=== PATIENT | male | born 1980 | race Caucasian/White ===

== ENCOUNTER 2018-03-21 17:07 | Emergency (ER) | payer SELFPAY ==
[2018-03-21] MEDS ORDERED: Tramadol ER(NF) 100 MG TAB.ER PO ONE (17:41)
[2018-03-21] MEDS ORDERED: traMADol TAB* 50 MG ONE (17:56)
[2018-03-21 18:40] VITALS: BP 138/78
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
== END 2018-03-21 18:38 | disposition home or self-care (01) ==
LOC: ED 17:07
DX: T14.90XA Injury, unspecified, initial encounter (principal); Z04.1 Encounter for examination and observation following transport accident; V49.9XXA Car occupant (driver) (passenger) injured in unspecified traffic accident, initial encounter; Y92.9 Unspecified place or not applicable
CPT/HCPCS: 99282; A9270-GY

== ENCOUNTER 2019-04-25 12:39 | Emergency (ER) | payer BC, OTHER ==
[2019-04-25] MEDS ORDERED: Al Hydrox/Mg Hydrox/Simet LIQ* 30 ML UDC PO ONE (12:42)
[2019-04-25] MEDS ORDERED: Lidocaine 2% VISCOUS* 15 ML UDC PO ONE (12:42)
[2019-04-25] MEDS ORDERED: Famotidine TAB* 20 MG PO ONE (12:42)
[2019-04-25] MEDS ORDERED: Aspirin 81 mg CHEW TAB* 81 MG TAB.CHEW PO ONE (12:52)
--- NOTE | 2019-04-25 12:52 | UC ---
Cardiac HPI - HPI Summary HPI Summary: sudden onset of left anterior chest pain associated with SOB, tachycardia. PAtient does drink energy drinks and is a smoker---Uncle had first [place] in his 40' s. 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---patient tells us he friend noted him to get pale at unset of symptoms--- no epigastric pain no change in pain with inspiration or palpation---no pain in legs, immobility, nausea or vomiting - History of Current Complaint Chief Complaint: UCChestPain Stated Complaint: CHEST PAIN Time Seen by Provider: 04/25/19 12:50 Hx Obtained From: Patient Onset/Duration: Sudden Onset Timing: Constant Initial Severity: Moderate Current Severity: Moderate Chest Pain Location: Left Anterior Character: Fast Aggravating Factor(s): Exertion Alleviating Factor(s): Nothing Associated Signs & Symptoms: Positive: Chest Pain - Risk Factors Pulmonary Embolism Risk Factors: Smoking - Allergy/Home Medications Allergies/Adverse Reactions: Allergies Allergy/AdvReac Type Severity Reaction Status Date / Time amoxicillin AdvReac Severe Diarrhea Verified 04/25/19 13:00 PMH/Surg Hx/FS Hx/Imm Hx Previously Healthy: No Psychological History: Anxiety - Surgical History Surgical History: Yes Surgery Procedure, Year, and Place: [id number] - Family History Known Family History: Positive: Other - gal bladder dz - Social History Occupation: Employed Full-time Lives: With Family Alcohol Use: None Substance Use Type: Marijuana Substance Use Comment - Amount & Last Used: OR CBD OIL WHEN STOMACH IS UPSET Smoking Status (MU): Former Smoker Type: Cigars, Smokeless Tobacco Amount Used/How Often: 2 cigars per day- USING VAPOR- AND WEANING FROM When Did the Patient Quit Smoking/Using Tobacco: 04/2015 Review of Systems All Other Systems Reviewed And Are Negative: Yes Constitutional: Positive: Negative Skin: Positive: Negative Eyes: Positive: Negative ENT: Positive: Negative Respiratory: Positive: Negative Cardiovascular: Positive: Palpitations, Chest Pain Gastrointestinal: Positive: Negative Genitourinary: Positive: Negative Motor: Positive: Negative Neurovascular: Positive: Negative Musculoskeletal: Positive: Negative Neurological: Positive: Negative Psychological: Positive: Negative Is Patient Immunocompromised?: No Physical Exam Triage Information Reviewed: Yes Appearance: Ill-Appearing, Pain Distress, Thin Vital Signs Reviewed: Yes Eye Exam: Normal Eyes: Positive: Conjunctiva Clear ENT Exam: Normal ENT: Positive: Normal ENT inspection, Hearing grossly normal. Negative: Trismus , Muffled voice, Hoarse voice Dental Exam: Normal Neck exam: Normal Neck: Positive: Supple, Nontender Respiratory Exam: Normal Respiratory: Positive: Chest non-tender, Lungs clear, Normal breath sounds, No respiratory distress, No accessory muscle use Cardiovascular Exam: Normal Cardiovascular: Positive: RRR, No Murmur, Pulses Normal, Brisk Capillary Refill Abdominal Exam: Normal Abdomen Description: Positive: Nontender, No Organomegaly, Soft. Negative: CVA Tenderness (R), CVA Tenderness (L), Distended, McBurney's Point Tenderness Bowel Sounds: Positive: Present Musculoskeletal Exam: Normal Musculoskeletal: Positive: Strength Intact, ROM Intact, No Edema Neurological Exam: Normal Neurological: Positive: Alert, Muscle Tone Normal Psychological Exam: Normal Skin Exam: Normal Diagnostics - EKG Cardiac Rate: NL Cardiac Rhythm: Sinus: Normal Ectopy: None ST Segment: Normal EKG Comparison: No Significant Change - Assessment/Plan Course Of Treatment: keep o2.94%, aspirin, saline lock ekg gi cocktail to [facility] for further evaluation by ems - Clinical Impression Provider Diagnosis: Chest pain, Gastritis Discharge - Sign-Out/Discharge Documenting (check all that apply): Patient Departure All imaging exams completed and their final reports reviewed: No Studies - Discharge Plan Condition: Good Disposition: TRANS HIGHER LVL OF CARE FAC Referrals: Malina Colon MD [Primary Care Provider] - - Billing Disposition and Condition Condition: GOOD Disposition: Trans Higher Lvl of Care Fac
[2019-04-25 13:00] VITALS: BP 162/90
== END 2019-04-25 13:20 | disposition short-term general hospital (02) ==
LOC: UCEAST 12:39
DX: R07.9 Chest pain, unspecified (principal); K29.70 Gastritis, unspecified, without bleeding; Z87.891 Personal history of nicotine dependence
CPT/HCPCS: 93005; 99214; A9270-GY; G0463

== ENCOUNTER 2019-04-25 13:41 | Emergency (ER) | payer SELFPAY ==
--- NOTE | 2019-04-25 14:06 | ED ---
HPI Chest Pain - HPI Summary HPI Summary: This patient is a 38 year old M presenting to [facility] from [facility] with a chief complaint of left anterior chest pain with numbness to the jaw since 11:30 this morning. Additionally reports left shoulder pain, that is chronic, and diaphoresis at rest. At work he was told by his co-workers he was pale. At worst Pain rated 6/10 that is currently improved to 2/10 after given GI cocktail at [facility]. Denies history of anxiety and panic attacks. Current smoker. Reports FMHx of [place] in a 48 y/o uncle. Denies significant PMHx. Patient additionally given 324 ASA at [facility]. - History of Current Complaint Chief Complaint: EDChestWallPain Time Seen by Provider: 04/25/19 13:54 Hx Obtained From: Patient Onset/Duration: Started Hours Ago Time of Onset: 11:30 Timing: Constant Initial Severity: Moderate Current Severity: Mild Pain Intensity: 2 Pain Scale Used: 0-10 Numeric Chest Pain Location: Left Anterior Chest Pain Radiates: Yes Chest Pain Radiates To:: Shoulder, Jaw Alleviating Factor(s): Medication Associated Signs and Symptoms: Positive: Chest Pain, Diaphoresis, Other: - pallor, jaw pain - Allergy/Home Medications Allergies/Adverse Reactions: Allergies Allergy/AdvReac Type Severity Reaction Status Date / Time amoxicillin AdvReac Severe Diarrhea Verified 04/25/19 13:51 PMH/Surg Hx/FS Hx/Imm Hx Endocrine/Hematology History: Denies: Hx Diabetes, Hx Thyroid Disease Cardiovascular History: Denies: Hx Hypertension Respiratory History: Denies: Hx Asthma, Hx Chronic Obstructive Pulmonary Disease (COPD) GI History: Reports: Other GI Disorders - "SENSITIVE STOMACH" Denies: Hx Ulcer Sensory History: Denies: Hx Contacts or Glasses, Hx Hearing Aid Opthamlomology History: Denies: Hx Contacts or Glasses - Surgical History Surgery Procedure, Year, and Place: [id number] Hx Anesthesia Reactions: No Infectious Disease History: No Infectious Disease History: Reports: Hx of Known/Suspected MRSA - in his teens Denies: Hx Hepatitis, Hx Human Immunodeficiency Virus (HIV), History Other Infectious Disease, Traveled Outside the [place] in Last 30 Days - Family History Known Family History: Positive: Other - gal bladder dz - Social History Alcohol Use: Rare Substance Use Type: Reports: Marijuana Substance Use Comment - Amount & Last Used: OR CBD OIL WHEN STOMACH IS UPSET Smoking Status (MU): Former Smoker Type: Cigars, Smokeless Tobacco Amount Used/How Often: 2 cigars per day- USING VAPOR- AND WEANING FROM Review of Systems Positive: Skin Diaphoresis Positive: Chest Pain Positive: Myalgia - shoulder Positive: Other - pallor Positive: Numbness - jaw All Other Systems Reviewed And Are Negative: Yes Physical Exam - Summary Physical Exam Summary: GENERAL: Patient is a well-developed and nourished M who is lying comfortable in the stretcher. Patient is not in any acute respiratory distress. HEAD AND FACE: Normocephalic EYES: PERRLA, EOMI x 2. EARS: Hearing grossly intact. MOUTH: Oropharynx within normal limits. NECK: Supple, trachea is midline, no adenopathy, no JVD, no carotid bruit. CHEST: Symmetric, no tenderness at palpation LUNGS: Clear to auscultation bilaterally. No wheezing or crackles. CVS: Regular rate and rhythm, S1 and S2 present, no murmurs or gallops appreciated. ABDOMEN: Soft, non-tender. Bowel sounds are normal. No abnormal abdominal pulsations. EXTREMITIES: Full ROM in all major joints, no edema, no cyanosis or clubbing. NEURO: Alert and oriented x 3. No acute neurological deficits. Speech is normal and follows commands. SKIN: Dry and warm Triage Information Reviewed: Yes Vital Signs On Initial Exam: Initial Vitals Temp Pulse Resp BP Pulse Ox 98.5 F 64 16 139/94 99 04/25/19 13:47 04/25/19 13:47 04/25/19 13:47 04/25/19 13:47 04/25/19 13:47 Vital Signs Reviewed: Yes Diagnostics - Vital Signs Vital Signs Temp Pulse Resp BP Pulse Ox 04/25/19 13:47 98.5 F 64 16 139/94 99 - Laboratory Result Diagrams: 04/25/19 14:13 04/25/19 14:13 Lab Statement: Any lab studies that have been ordered have been reviewed, and results considered in the medical decision making process. - Radiology CXR Radiology Interpretation Completed By: Radiologist Summary of Radiographic Findings: No radiographic evidence of acute cardiopulmonary disease. ED Physician has reviewed this report. - EKG 1352 Cardiac Rate: NL - 65 BPM EKG Rhythm: Sinus Rhythm Summary of EKG Findings: incomplete RBBB Chest Pain Course/Dx - Course Course Of Treatment: 38 year old M presenting to [facility] from [facility] with a chief complaint of left anterior chest pain with numbness to the jaw since 11:30 this morning. Additionally reports left shoulder pain, that is chronic, and diaphoresis at rest. Reports FMHx of [place] in a 48 y/o uncle. Denies significant PMHx. Patient additionally given 324 ASA at [facility]. Bloodwork and UA obtained, with two negative troponin results. CXR reveals, "No radiographic evidence of acute cardiopulmonary disease." per radiologist. EKG reveals no ischemic changes. Results discussed with patient. Explained to patient even though his symptoms were improved with the GI cocktail he needs to follow up with a dolphin researcher for further management and evaluation. Patient is agreeable with this plan. - Diagnoses Provider Diagnoses: Chest pain Discharge - Sign-Out/Discharge Documenting (check all that apply): Patient Departure - discharge Patient Received Moderate/Deep Sedation with Procedure: No - Discharge Plan Condition: Stable Disposition: HOME Prescriptions: Pantoprazole TAB * [Protonix TAB*] 40 mg PO DAILY #30 tab Patient Education Materials: Chest Pain (ED), Gastroesophageal Reflux Disease ( ED) Referrals: Malina Colon MD [Primary Care Provider] - 2 Days Gary Jones DO [Medical Doctor] - 2 Days Additional Instructions: RETURN TO THE EMERGENCY DEPARTMENT FOR CHANGING OR WORSENING SYMPTOMS. Otherwise follow up with your PCP and a dolphin researcher. - Billing Disposition and Condition Condition: STABLE Disposition: Home - Attestation Statements Document Initiated by Scribe: Yes Documenting Scribe: Bushra Rivas Provider For Whom Duane is Documenting (Include Credential): Candie Barker MD Scribe Attestation: Bushra Cote, scribed for Candie Barker MD on 04/25/19 at 2108. Scribe Documentation Reviewed: Yes Provider Attestation: The documentation as recorded by the Bushra bazan accurately reflects the service I personally performed and the decisions made by me, Candie Barker MD Status of Scribe Document: Viewed
[2019-04-25 14:22] LABS: ABS Basophils 0.1 10^3/ul (0-0.2); ABS Eosinophils 0.2 10^3/ul (0-0.6); ABS Lymphocytes 1.9 10^3/ul (1.0-4.8); ABS Monocytes 0.6 10^3/ul (0-0.8); ABS Neutrophils 3.5 10^3/ul (1.5-7.7); Eosinophil % 3.3 %; Hematocrit 40 % (42-52); Mean Corpuscular HGB Conc 35 g/dL (31-36); Mean Corpuscular Hemoglobin 31 pg (27-31); Mean Corpuscular Volume 89 fL (80-94); Mean Platelet Volume 8.2 fL (7.4-10.4); Nucleated Red Blood Cells % 0.1; Platelet Count 166 10^3/uL (150-450); Red Blood Count 4.49 10^6 /uL (4.18-5.48); Red Cell Distribution Width 14 % (10.5-15); White Blood Count 6.2 10^3/uL (3.5-10.8)
[2019-04-25 14:31] LABS: Activated Partial Thrombo Time 40.8 seconds (26.0-38.0); INR 0.99 (0.82-1.09)
[2019-04-25 14:39] LABS: ALT 11 U/L (7-52); AST 17 U/L (13-39); Albumin 4.6 g/dL (3.2-5.2); Albumin/Globulin Ratio 1.8 (1-3); Alkaline Phosphatase 41 U/L (34-104); Anion Gap 5 mmol/L (2-11); BUN/Creatinine Ratio 8.9 (8-20); Blood Urea Nitrogen 8 mg/dL (6-24); CO2 Carbon Dioxide 27 mmol/L (22-32); CRP High Sensitivity < 0.20 mg/L (<2.00); Calcium 9.6 mg/dL (8.6-10.3); Chloride 105 mmol/L (101-111); EGFR African American 114.9 (>60); Globulin 2.5 g/dL (2-4); Glucose 90 mg/dL (70-100); Magnesium 2.1 mg/dL (1.9-2.7); Potassium 3.9 mmol/L (3.5-5.0); Sodium 137 mmol/L (135-145); Total Protein 7.1 g/dL (6.4-8.9)
[2019-04-25 15:31] LABS: Urine Appearance Clear; Urine Bilirubin Negative (Negative); Urine Blood Negative (Negative); Urine Color Straw; Urine Glucose Negative (Negative); Urine Ketones Negative (Negative); Urine Nitrite Negative (Negative); Urine Protein Negative (Negative); Urine Specific Gravity 1.004 (1.010-1.030); Urine Urobilinogen Negative (Negative)
[2019-04-25 17:48] VITALS: BP 132/80
== END 2019-04-25 17:46 | disposition home or self-care (01) ==
LOC: ED 13:41
DX: R07.9 Chest pain, unspecified (principal); F17.290 Nicotine dependence, other tobacco product, uncomplicated; Z88.3 Allergy status to other anti-infective agents
CPT/HCPCS: 36415; 71046; 80053; 81003; 83605; 83735; 84484; 85025; 85379; 85610; 85730; 86141; 93005; 99283

== ENCOUNTER 2019-09-07 16:30 | Emergency (ER) | payer SELFPAY ==
--- NOTE | 2019-09-07 17:16 | UC ---
Lower Extremity/Ankle HPI - HPI Summary HPI Summary: 39 y/o male presents to the urgent care c/p of left foot pain and mild swelling s/p injury w/ a fallen hammer last night. Pt reports he was trying to get some linens from a top drawer when a hammer fell off on top os his left foot. He was wearing shoes. He applied ice and has taken Ibuprofen PO 400mg to alleviate symptoms. Last dose was this morning. Pain is 5/10 and worse w/ walking and associated w/ mild tingling sensation over the lateral side of foot. Hx of left foot sprain in the past. Pt denies fever, calf pain, SOB, chest pain, abdominal pain, ankle pain, N/V/D. - History of Current Complaint Stated Complaint: FOOT INJURY Time Seen by Provider: 09/07/19 17:15 Hx Obtained From: Patient Onset/Duration: Gradual Onset, Lasting Days - 1 day, Still Present, Worse Since - th morning Severity Initially: Moderate Severity Currently: Moderate Pain Intensity: 5 Pain Scale Used: 0-10 Numeric Aggravating Factor(s): Standing, Ambulation Alleviating Factor(s): Rest, Elevation, OTC Meds - Ibuprofen PO 400mg this morning Able to Bear Weight: Yes - Risk Factors Gout Risk Factors: Negative DVT Risk Factors: Negative Septic Arthritis Risk Factor: Negative - Allergies/Home Medications Allergies/Adverse Reactions: Allergies Allergy/AdvReac Type Severity Reaction Status Date / Time amoxicillin AdvReac Severe Diarrhea Verified 09/07/19 17:19 PMH/Surg Hx/FS Hx/Imm Hx Previously Healthy: Yes - Pt denies PMHX - Surgical History Surgical History: Yes Surgery Procedure, Year, and Place: L [id number] - Family History Known Family History: Positive: Diabetes, Other - gall bladder dz - Social History Occupation: Employed Full-time Lives: With Family Alcohol Use: Rare Substance Use Type: Marijuana Substance Use Comment - Amount & Last Used: OR CBD OIL WHEN STOMACH IS UPSET Smoking Status (MU): Former Smoker Type: Cigars, Smokeless Tobacco Amount Used/How Often: 2 cigars per day- USING VAPOR- AND WEANING FROM When Did the Patient Quit Smoking/Using Tobacco: 04/2015 Household Exposure Type: Cigarettes Review of Systems All Other Systems Reviewed And Are Negative: Yes Constitutional: Positive: Negative Skin: Positive: Negative Eyes: Positive: Negative ENT: Positive: Negative Respiratory: Positive: Negative Cardiovascular: Positive: Negative Gastrointestinal: Positive: Negative Genitourinary: Positive: Negative Motor: Positive: Negative Neurovascular: Positive: Negative Musculoskeletal: Positive: Decreased ROM - left foot, Other: - left foot pain s/ p inury w/ a falling hammer Neurological: Positive: Negative Psychological: Positive: Negative Is Patient Immunocompromised?: No Physical Exam - Summary Physical Exam Summary: Vital Signs Reviewed: Yes General : well developed, well nourished male w/o any apparent distress Eyes: Positive: Conjunctiva Clear - PERRLA, EOMI ENT: Positive: Normal ENT inspection, Hearing grossly normal, Pharynx normal, TMs normal Neck: Positive: Supple, Nontender, No Lymphadenopathy Respiratory: Positive: Chest non-tender, Lungs clear, Normal breath sounds, No respiratory distress Cardiovascular: Positive: RRR, No Murmur, Pulses Normal Abdomen Description: Positive: Nontender, No Organomegaly, Soft. Negative: CVA Tenderness (R), CVA Tenderness (L) Bowel Sounds: Positive: Present Musculoskeletal: Positive: Strength Intact, ROM Intact, No Edema, Left Foot/Toes : Pt is able to bear weight but ambulate with mild limping. RT foot :No surface trauma, ecchymosis, erythema, lesions, ulcers or break in skin integrity. The L foot is without obvious asymmetry or deformity when compared to the R foot. No bony step-off, No tenderness to palpation over toes, point tenderness over the dorsal side of mid foot and base of the 4th and 5th metatarsal and sole at the same level, no tenderness of hindfoot, Decrease plantar/dorsiflexion, inversion/eversion due to pain. Distal motor and neurovascular status are intact. Neurological Exam: Normal Psychological Exam: Normal Skin Exam: Normal Triage Information Reviewed: Yes Lower Extremity Course/Dx - Course Course Of Treatment: 39 y/o male presents to the urgent care c/p of left foot pain and mild swelling s/p injury w/ a fallen hammer last night. Pt reports he was trying to get some linens from a top drawer when a hammer fell off on top os his left foot. He was wearing shoes. He applied ice and has taken Ibuprofen PO 400mg to alleviate symptoms. Last dose was this morning. Pain is 5/10 and worse w/ walking and associated w/ mild tingling sensation over the lateral side of foot. Hx of left foot sprain in the past. Pt denies fever, calf pain, SOB, chest pain, abdominal pain, ankle pain, N/V/D. Hx obtained. LF foot X-ray ordered, IMPRESSION: NO ACUTE OSSEOUS INJURY. IF SYMPTOMS PERSIST, RECOMMEND REPEAT IMAGING. Pt probably w/ a left foot sprain. Pt's foot immobilized with marcus-bandage and given a post-op shoe to avoid flexion. Also Pt given crutches to avoid weight bearing since Pt is limping until symptoms resolve. Advised RICE, and Rx Tylenol PO for pain, If not improvement of symptoms to f/u with Orthopedic DR Prakash or Sports Medicine referral for further evaluation and treatment. Pt understood and agreed with plan of care. Pt left clinic ambulating w/ help of crutches. - Differential Dx/Diagnosis Differential Diagnosis/HQI/PQRI: Contusion, Dislocation, Fracture (Closed), Fracture (Open), Sprain, Strain, Tendonitis Provider Diagnosis: Injury of left foot, Sprain of foot, left Discharge ED - Sign-Out/Discharge Documenting (check all that apply): Patient Departure - D/C home All imaging exams completed and their final reports reviewed: Yes - Discharge Plan Condition: Stable Disposition: HOME Patient Education Materials: Foot Sprain (ED) Referrals: Malina Colon MD [Primary Care Provider] - Frank Prakash MD [Medical Doctor] - 1 Week [facility] [Provider Group] - 1 Week Additional Instructions: 1-Please Tylenol PO q6-8hrs prn after meals as directed to alleviate pain and swelling. 2-Please apply ice, keep your foot immobilized with the Marcus bandage and post- op shoe. Use the crutches to avoid weight bearing until symptoms resolve. Avoid strenuous exercise or standing for long periods of time 3- Please f/u with your Orthopedic Dr Prakash or Sports Medicine if not improvement of symptoms in 1 week for further evaluation and treatment. - Billing Disposition and Condition Condition: STABLE Disposition: Home
[2019-09-07 17:19] VITALS: BP 108/58
[2019-09-07] MEDS ORDERED: Ibuprofen TAB* 600 MG PO ONE (17:24)
== END 2019-09-07 18:09 | disposition home or self-care (01) ==
LOC: UCEAST 16:30
DX: S93.602A Unspecified sprain of left foot, initial encounter (principal); Z87.828 Personal history of other (healed) physical injury and trauma; Z88.0 Allergy status to penicillin; Z87.891 Personal history of nicotine dependence; W20.8XXA Other cause of strike by thrown, projected or falling object, initial encounter; Y93.89 Activity, other specified; Y92.9 Unspecified place or not applicable
CPT/HCPCS: 99212; G0463